=== PATIENT | female | born 1995 | race Caucasian/White ===

== ENCOUNTER → 2017-02-05 | Outpatient (REF) | LOC: WSOH 10:24 | DX: Z00.00 Encounter for general adult medical examination without abnormal findings (principal) | CPT/HCPCS: G0463 ==

== ENCOUNTER 2017-08-20 12:52 | Emergency (ER) | payer OTHER ==
[~2017-08-20] VITALS: Ht 167.6 cm; Wt 120.5 kg
[2017-08-20 13:08] VITALS: BP 132/87; TEMP 98.6
[2017-08-20] MEDS ORDERED: MULTIPLE VITAMI1 CAP PO (17:17)
[2017-08-20] MEDS ORDERED: ATARAX50 MG PO (17:19)
[2017-08-20] MEDS ORDERED: COCONUT OIL118.28 ML PO (17:19)
[2017-08-20] MEDS ORDERED: PROZAC40 MG PO (17:20)
[2017-08-20] MEDS ORDERED: MAGNESIUM200 MG PO (17:21)
[2017-08-20] MEDS ORDERED: COLESTID 1GM1 G PO (17:21)
[2017-08-20] MEDS ORDERED: CELEBREX 200MG200 MG PO (17:21)
[2017-08-20] MEDS ORDERED: FOLIC ACID800 MCG PO (17:22)
[2017-08-20] MEDS ORDERED: VITAMIN B COMPL1 SGL PO (17:23)
[2017-08-20 18:58] VITALS: PULSE 100
== END 2017-08-20 19:04 | disposition home or self-care (01) ==
LOC: COL.ER 12:52
DX: S06.0X0A Concussion without loss of consciousness, initial encounter (principal); S33.9XXA Sprain of unspecified parts of lumbar spine and pelvis, initial encounter; F32.9 Major depressive disorder, single episode, unspecified; F41.9 Anxiety disorder, unspecified; E66.9 Obesity, unspecified; M19.90 Unspecified osteoarthritis, unspecified site; Z68.41 Body mass index [BMI] 40.0-44.9, adult; Z79.52 Long term (current) use of systemic steroids; W00.0XXA Fall on same level due to ice and snow, initial encounter; W28.XXXA Contact with powered lawn mower, initial encounter; Y92.89 Other specified places as the place of occurrence of the external cause; Y99.0 Civilian activity done for income or pay
CPT/HCPCS: J1885